=== PATIENT | female | born 1995 | race Two or more races ===

== ENCOUNTER 2024-08-14 14:40 | Outpatient (CLI) | payer OTHER | END 2024-08-14 14:42 | disposition home or self-care (01) | LOC: PRENATAL 14:40 | PROVIDERS: ATTEND Obstetrics & Gynecology Maternal & Fetal Medicine | DX: O36.80X0 Pregnancy with inconclusive fetal viability, not applicable or unspecified (principal); Z36.82 Encounter for antenatal screening for nuchal translucency; Z3A.14 14 weeks gestation of pregnancy ==

== ENCOUNTER 2024-09-24 08:52 | Outpatient (CLI) | payer OTHER | END 2024-09-24 08:54 | disposition home or self-care (01) | LOC: PRENATAL 08:52 | PROVIDERS: ATTEND Obstetrics & Gynecology Maternal & Fetal Medicine | DX: O44.00 Complete placenta previa NOS or without hemorrhage, unspecified trimester (principal); Z3A.19 19 weeks gestation of pregnancy ==

== ENCOUNTER → 2024-12-21 06:46 | Outpatient (CLI) | payer OTHER | END | disposition home or self-care (01) | LOC: PRENATAL 06:46 | PROVIDERS: ATTEND Obstetrics & Gynecology Maternal & Fetal Medicine | DX: O26.849 Uterine size-date discrepancy, unspecified trimester (principal); O36.8199 Decreased fetal movements, unspecified trimester, other fetus; Z3A.33 33 weeks gestation of pregnancy ==